=== PATIENT | female | born 1960 | race Two or more races ===

== ENCOUNTER → 2019-04-01 | Outpatient (CLI) | payer OTHER | LOC: BMCIMAGING 16:26 | PROVIDERS: ATTEND Family Medicine | DX: S59.911A Unspecified injury of right forearm, initial encounter (principal) ==

== ENCOUNTER → 2019-04-11 | Outpatient (CLI) | payer OTHER | LOC: BMCIMAGING 08:49 | PROVIDERS: ATTEND Physician Assistant | DX: S59.911D Unspecified injury of right forearm, subsequent encounter (principal) ==